=== PATIENT | male | born 1940 | race Caucasian/White ===

== ENCOUNTER 2018-10-23 14:53 | Emergency (ER) | payer OTHER ==
[~2018-10-23] VITALS: Ht 177.8 cm; Wt 109.8 kg
[~2018-10-23 14:53] MED LIST: ADALAT CC30 MG; ADALAT CC30 MG PO; AZITHROMYCIN 2250 MG PO; CIPRO250 M1 PO; COLACE100 MG PO; FLOMAX0.4 MG PO; GUAIATUSSIN AC10 ML PO; LEVSIN0.125 MG SUBLING; LIPITOR 20 MG T20 M1 PO; LIPITOR20 MG PO; MIRALAX17 GM PO; MUCINEX TA600 MG/TA2 PO; OXYCODONE HCL 55 MG PO; OXYCONTIN10 M1 PO; PREDNISONE 10 M10 MG PO; TYLENOL325 MG PO; VENTOLIN HFA 1818 GM INH; ZOFRAN ODT4 MG DISSOLVE
[2018-10-23] MEDS ORDERED: VITAMIN D2000 UNIT PO (15:04)
[2018-10-23 15:56] VITALS: BP 134/78
== END 2018-10-23 15:57 | disposition home or self-care (01) ==
LOC: M.ERS 14:53
DX: S30.0XXA Contusion of lower back and pelvis, initial encounter (principal); S09.8XXA Other specified injuries of head, initial encounter; I10 Essential (primary) hypertension; E78.00 Pure hypercholesterolemia, unspecified; Z87.442 Personal history of urinary calculi; Z88.2 Allergy status to sulfonamides; W00.0XXA Fall on same level due to ice and snow, initial encounter; Y93.89 Activity, other specified; Y92.89 Other specified places as the place of occurrence of the external cause; Y99.8 Other external cause status

== ENCOUNTER 2020-04-17 17:51 | Emergency (ER) | payer OTHER ==
[~2020-04-17] VITALS: Ht 177.8 cm; Wt 104.3 kg
[~2020-04-17 17:51] MED LIST changes: +VITAMIN D2000 UNIT PO
[2020-04-17] MEDS ORDERED: NORVASC 2.5 MG2.5 M1 PO (18:20)
[2020-04-17] MEDS ORDERED: NORCO 5-325 TA1 EAC2 PO (19:34)
[2020-04-17] MEDS ORDERED: VALTREX 500 MG500 MG PO (19:34)
[2020-04-17] MEDS ORDERED: DOXYCYCLINE 10100 MG PO (19:34)
[2020-04-17] MEDS ORDERED: ONDANSETRON HCL4 M2 PO (19:35)
[2020-04-17 19:56] VITALS: BP 125/76
== END 2020-04-17 19:58 | disposition home or self-care (01) ==
LOC: M.ERS 17:51
DX: B02.9 Zoster without complications (principal); L03.811 Cellulitis of head [any part, except face]; I10 Essential (primary) hypertension; E78.00 Pure hypercholesterolemia, unspecified; Z87.442 Personal history of urinary calculi; Z88.2 Allergy status to sulfonamides

== ENCOUNTER 2020-08-15 09:35 | Emergency (ER) | payer OTHER ==
[~2020-08-15] VITALS: Ht 177.8 cm; Wt 104.8 kg
[~2020-08-15 09:35] MED LIST changes: +DOXYCYCLINE 10100 MG PO; +NORCO 5-325 TA1 EAC2 PO; +NORVASC 2.5 MG2.5 M1 PO; +ONDANSETRON HCL4 M2 PO; +VALTREX 500 MG500 MG PO
[2020-08-15 09:52] LABS: URINE BILIRUBIN NEGATIVE (Negative); URINE BLOOD NEGATIVE (Negative); URINE CLARITY CLEAR; URINE COLOR YELLOW; URINE GLUCOSE-RANDOM NEGATIVE (Negative); URINE KETONES NEGATIVE (Negative); URINE LEUKOCYTES-REFLEX NEGATIVE (Negative); URINE NITRITE-REFLEX NEGATIVE (Negative); URINE PROTEIN NEGATIVE (Negative); URINE SPECIFIC GRAVITY 1.025 (1.005-1.030); URINE UROBILINOGEN 0.2 E.U./dl (0.2-1.0)
[2020-08-15 10:13] LABS: ABSOLUTE BASOPHILS 0.1 thou/uL (0.0-0.2); ABSOLUTE EOSINOPHILS 0.3 thou/uL (0.0-0.7); ABSOLUTE MONOCYTES 1.7 thou/uL (0.0-1.2); ABSOLUTE NEUTROPHILS 8.7 thou/uL (1.6-8.1); EOSINOPHILS 2.1 %; HEMATOCRIT 45.8 % (42.0-52.0); HEMOGLOBIN 15.6 gm/dL (14.0-18.0); LYMPHOCYTES 8.4 %; MCH 28.6 pg (26.0-34.0); MCHC 34.1 g/dL (28.0-37.0); MONOCYTES 14.5 %; MPV 8.3 fl. (7.2-11.1); NUCLEATED RBCS 0 /100WBC; PLATELET COUNT* 153 thou/uL (150-400); RBC 5.46 mil/uL (4.50-6.00); RDW-CV 13.9 % (10.5-14.5); WBC 11.8 thou/uL (4.0-11.0)
[2020-08-15 10:22] LABS: CALCIUM 7.9 mg/dL (8.5-10.1); CREATININE 1.5 mg/dL (0.6-1.3); POTASSIUM 3.8 mmol/L (3.5-5.1)
[2020-08-15 10:27] LABS: ALBUMIN 3.2 g/dL (3.4-5.0); TOTAL BILIRUBIN 1.3 mg/dL (<0.1-1.0); TOTAL PROTEIN 6.2 g/dL (6.4-8.2)
[2020-08-15] MEDS ORDERED: CIPROFLOXACIN500 M1 PO (11:14)
[2020-08-15] MEDS ORDERED: NORCO 5-325 TA1 EAC2 PO (11:14)
[2020-08-15] MEDS ORDERED: FLAGYL500 M1 PO (11:14)
[2020-08-15 11:20] VITALS: BP 121/74
--- NOTE | 2020-08-17 08:54 | EKG ---
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 : 1940 Requested By: Phong Trevizo Order Number: [id number] MD: Ricci Alberto Measurements Intervals [place] Rate: 71 P: 21 MS: 164 QRS: -59 QRSD: 107 T: 0 QT: 405 QTc: 441 Interpretive Statements Sinus rhythm Left anterior fascicular block Low voltage, precordial leads Consider anterior infarct Baseline wander in lead(s) V2 Compared to ECG 12/19/2016 09:44:16 no change Electronically Signed On 08-17-2020 8:54:42 [employer] 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
== END 2020-08-15 11:20 | disposition home or self-care (01) ==
LOC: M.ERS 09:35
PROVIDERS: Family Medicine
DX: K57.32 Diverticulitis of large intestine without perforation or abscess without bleeding (principal); I10 Essential (primary) hypertension; E78.00 Pure hypercholesterolemia, unspecified; Z87.442 Personal history of urinary calculi; Z88.2 Allergy status to sulfonamides